=== PATIENT | male | born 1950 | race Caucasian/White ===

== ENCOUNTER 2017-04-16 08:13 | Outpatient (CLI) | payer OTHER ==
[~2017-04-16 08:13] MED LIST: ANTIVERT25 M1 PO; CIPRO500 MG PO; FLAGYL500MG PO; INTESTINEX680 MG PO; SYNTHROID175 MCG
[2017-04-21] MEDS ORDERED: SYNTHROID175 MCG PO (13:08)
[2017-04-21] MEDS ORDERED: LIPITOR40 MG PO (13:08)
[2017-04-21] MEDS ORDERED: FENOFIB PO (13:09)
[2017-04-21] MEDS ORDERED: [UNRECOGNIZED DRUG - OTHER] PO (13:09)
[2017-04-21] MEDS ORDERED: B TREX PO (13:10)
[2017-04-21] MEDS ORDERED: OSTERA TABLET1 EACH PO (13:11)
[2017-04-21] MEDS ORDERED: NEURIN SL (13:11)
[2017-05-02] MEDS ORDERED: LEVAQUIN750 MG PO (08:30)
[2017-05-02] MEDS ORDERED: OXYC1TAB9 PO (08:30)
[2017-05-02] MEDS ORDERED: Intestinex CAP PO (08:30)
== END 2017-04-16 08:29 | disposition home or self-care (01) ==
LOC: RAD 08:13
DX: K57.32 Diverticulitis of large intestine without perforation or abscess without bleeding (principal); R10.32 Left lower quadrant pain; R19.4 Change in bowel habit; Z86.010 Personal history of colon polyps

== ENCOUNTER 2018-02-03 14:17 | Outpatient (CLI) | payer OTHER ==
[~2018-02-03 14:17] MED LIST changes: +B TREX PO; +FENOFIB PO; +Intestinex CAP PO; +LEVAQUIN750 MG PO; +LIPITOR40 MG PO; +NEURIN SL; +OSTERA TABLET1 EACH PO; +OXYC1TAB9 PO; +SYNTHROID175 MCG PO; +[UNRECOGNIZED DRUG - OTHER] PO
== END 2018-02-03 14:20 | disposition home or self-care (01) ==
LOC: RAD 14:17
DX: M16.11 Unilateral primary osteoarthritis, right hip (principal); M17.11 Unilateral primary osteoarthritis, right knee

== ENCOUNTER 2018-03-02 10:01 | Outpatient (CLI) | payer OTHER | END 2018-03-02 12:19 | disposition home or self-care (01) | LOC: MRI 10:01 | DX: M17.11 Unilateral primary osteoarthritis, right knee (principal) | CPT/HCPCS: 73721 ==

== ENCOUNTER 2018-05-13 15:29 | Outpatient (CLI) | payer OTHER | END 2018-05-13 17:00 | disposition home or self-care (01) | LOC: RAD 501 15:29 | DX: R07.89 Other chest pain (principal) ==

== ENCOUNTER 2019-02-05 13:59 | Outpatient (CLI) | payer OTHER | END 2019-02-05 14:02 | disposition home or self-care (01) | LOC: RAD 13:59 | DX: R10.84 Generalized abdominal pain (principal) ==

== ENCOUNTER 2019-03-04 07:00 | Day surgery (SDC) | payer OTHER ==
[~2019-03-04] VITALS: Ht 172.7 cm; Wt 69.4 kg
[~2019-03-04 07:00] MED LIST changes: +FENOFIBRATE160 MG PO; +NEURONTIN600 MG PO; +UROXATRAL10 MG PO
[2019-03-04] MEDS ORDERED: MIRALAX17 GM PO (13:56)
[2019-03-04] MEDS ORDERED: TYLENOL EXTRA500 MG PO (13:56)
[2019-03-04] MEDS ORDERED: ZOFRAN4 MG PO (13:56)
[2019-03-04] MEDS ORDERED: TRAMADOL HCL50 MG PO (13:56)
[2019-03-04] MEDS ORDERED: NEURONTIN300 MG PO (13:56)
== END 2019-03-04 13:00 | disposition home or self-care (01) ==
LOC: CIR.AMB 07:00 → SURH 07:00 → O/R 07:27 → SURH 07:27 → EDSTATUS 10:30 → SURH 10:30 → CIR.AMB 13:00
DX: K40.30 Unilateral inguinal hernia, with obstruction, without gangrene, not specified as recurrent (principal); K43.0 Incisional hernia with obstruction, without gangrene

== ENCOUNTER → 2019-05-18 | Outpatient (CLI) | payer OTHER ==
[~2019-05-18] MED LIST changes: +MIRALAX17 GM PO; +NEURONTIN300 MG PO; +TRAMADOL HCL50 MG PO; +TYLENOL EXTRA500 MG PO; +ZOFRAN4 MG PO
== END | disposition home or self-care (01) ==
LOC: RAD 15:05
DX: M25.561 Pain in right knee (principal); M25.562 Pain in left knee

== ENCOUNTER 2019-05-19 11:32 | Outpatient (CLI) | payer OTHER | END 2019-05-19 11:38 | disposition home or self-care (01) | LOC: SONOGRAMA 11:32 → MAMO-SONO 13:45 | DX: M25.512 Pain in left shoulder (principal); M25.522 Pain in left elbow ==

== ENCOUNTER 2019-12-23 08:41 | Outpatient (CLI) | payer OTHER | END 2019-12-23 08:46 | disposition home or self-care (01) | LOC: MRI 08:41 | PROVIDERS: ATTEND Internal Medicine Hematology & Oncology | DX: D51.1 Vitamin B12 deficiency anemia due to selective vitamin B12 malabsorption with proteinuria (principal); D53.8 Other specified nutritional anemias; D50.8 Other iron deficiency anemias; N40.1 Benign prostatic hyperplasia with lower urinary tract symptoms; R97.20 Elevated prostate specific antigen [PSA]; N41.8 Other inflammatory diseases of prostate; K31.83 Achlorhydria; B96.81 Helicobacter pylori [H. pylori] as the cause of diseases classified elsewhere; R73.01 Impaired fasting glucose; E03.8 Other specified hypothyroidism; E78.2 Mixed hyperlipidemia; K90.89 Other intestinal malabsorption | CPT/HCPCS: 73218 ==

== ENCOUNTER 2020-08-16 08:38 | Outpatient (CLI) | payer OTHER | END 2020-08-16 08:59 | disposition home or self-care (01) | LOC: RAD 08:38 → MAMO-SONO 09:00 | PROVIDERS: ATTEND Orthopaedic Surgery | DX: M24.541 Contracture, right hand (principal) ==

== ENCOUNTER 2021-04-07 23:09 | Emergency (ER) | payer OTHER ==
[~2021-04-07] VITALS: Ht 172.7 cm; Wt 70.3 kg
== END 2021-04-08 02:40 | disposition home or self-care (01) ==
LOC: ER 23:09
DX: S11.81XA Laceration without foreign body of other specified part of neck, initial encounter (principal); M54.2 Cervicalgia; W45.8XXA Other foreign body or object entering through skin, initial encounter; Y93.89 Activity, other specified; Y92.89 Other specified places as the place of occurrence of the external cause; Y99.8 Other external cause status

== ENCOUNTER 2024-02-22 22:38 | Emergency (ER) | payer OTHER ==
[~2024-02-22] VITALS: Ht 172.7 cm; Wt 68.0 kg
[2024-02-22] MEDS ORDERED: METFORMIN HCL500 M4 PO (23:21)
[2024-02-22] MEDS ORDERED: ROSUVASTATIN CAL5 MG (23:22)
[2024-02-23] MEDS ORDERED: ACETAMINOPHEN 500 MG GEL..CAP PO STA (00:52)
[2024-02-23] MEDS ORDERED: ACETAMINOPHEN 500 MG GEL..CAP PO ONE (01:00)
[2024-02-23 02:06] LABS: HEMOGLOBIN 13.6 g/dL (13-16.00); MEAN CELL VOLUME 89.2 fL (80.0-100.00); MEAN CORPUSCULAR HGB CONC 34.7 g/dl (32.0-36.0); PLATELET COUNT 166 K/uL (150-450); RED BLOOD COUNT 4.38 M/uL (4.00-6.00); RED CELL DISTRIBUTION WIDTH 13.5 % (11.5-14.5)
[2024-02-23] MEDS ORDERED: CEFTRIAXONE SODIUM 1,000 MG VIAL IV STA (02:22)
[2024-02-23] MEDS ORDERED: CEFTRIAXONE SODIUM 1,000 MG VIAL ONE (02:24)
[2024-02-23] MEDS ORDERED: AMOX-CLAV 875-1 EACH PO (02:42)
== END 2024-02-23 03:12 ==
LOC: ER 22:39
PROVIDERS: General Practice
DX: S91.051A Open bite, right ankle, initial encounter (principal); W54.0XXA Bitten by dog, initial encounter; Y93.89 Activity, other specified; Y92.89 Other specified places as the place of occurrence of the external cause; Y99.8 Other external cause status; I10 Essential (primary) hypertension; E03.8 Other specified hypothyroidism; Z88.6 Allergy status to analgesic agent
CPT/HCPCS: 36415; 73600; 96365; 99283; J0696

== ENCOUNTER 2024-02-25 15:17 | Inpatient (IN) | payer OTHER ==
[~2024-02-25] VITALS: Ht 152.4 cm; Wt 68.0 kg
[~2024-02-25 15:17] MED LIST changes: +AMOX-CLAV 875-1 EACH PO; +METFORMIN HCL500 M4 PO; +ROSUVASTATIN CAL5 MG
--- NOTE | 2024-02-25 15:44 | NUR ---
SE RECIBE PACIENTE ALERTA Y ORIENTADO EN [place] RISSA ESFERAS REFIERE VENIR DE PARTE DEL DR. JEET CHARLES PARA ADMISION. INDICA QUE HACE APROXIMADAMENTE 10 DOAS LO MORDIO UN MIMI EN EL TOBILLO DERECHO. MENCIONA QUE ESTUVO TOMANDO CEFADROXIL Y AUGMENTIN. SE OBSERCA HERIDA CON ERITEMA, EDEMA Y SECRECIONES PURULENTAS.
[2024-02-25] MEDS ORDERED: RINGERS SOLUTION,LACTATED 1,000 ML IV STA (16:34)
--- NOTE | 2024-02-25 16:51 | NUR ---
SE ORIENTA PTE SOBRE TX A SEGUIR, EL MISMO REFIERE ENTENDER. SE EMPERATRIZ MUESTRA DE LAB, SE CANALIZA Y SE COLOCA IV FLUIDS
[2024-02-25 17:46] LABS: HEMATOCRIT 41.8 % (39.0-48.0); HEMOGLOBIN 14.2 g/dL (13-16.00); MEAN CELL VOLUME 89.1 fL (80.0-100.00); MEAN CORPUSCULAR HEMOGLOBIN 30.3 pg (27.00-32.0); PLATELET COUNT 199 K/uL (150-450); RED BLOOD COUNT 4.69 M/uL (4.00-6.00); RED CELL DISTRIBUTION WIDTH 13.8 % (11.5-14.5)
[2024-02-25 17:56] LABS: PARTIAL THROMBOPLASTIN TIME 26.6 SECONDS (22.0-34.0); PROTHROMBIN TIME 10.9 SECONDS (9.0-11.5)
[2024-02-25 18:00] LABS: ALBUMIN 3.6 gm/dL (3.4-5.0); BILIRUBIN TOTAL 0.21 mg/dL (0.3-1.2); CALCIUM 10.4 mg/dL (8.5-10.1); CREATININE SERUM 0.91 mg/dL (0.70-1.30); GFR 81.44; GLOBULINA 5.2 G/DL (2.4-3.5); POTASSIUM 4.18 mEq/L (3.5-5.1); TOTAL PROTEIN 8.8 gm/dL (6.4-8.2)
[2024-02-25] MEDS ORDERED: 0.9 % SODIUM CHLORIDE 1,000 ML IV SCH (18:45)
[2024-02-25] MEDS ORDERED: PIPERACILLIN/TAZOBACTAM SODIUM 3.375 GM in DEXTROSE 5 % IN WATER 100 ML IV SCH (19:01)
[2024-02-25] MEDS ORDERED: ENALAPRILAT DIHYDRATE 1.25 MG/ML VIAL IV PRN (19:15)
[2024-02-25 19:39] LABS: ERYTHROCYTE SEDIMENTATION RATE 68 mm/hr
[2024-02-25] MEDS ORDERED: PIPERACILLIN/TAZOBACTAM SODIUM 3.375 GM VIAL IV ONE (20:01)
[2024-02-25] MEDS ORDERED: ALFUZOSIN 10 MG PO SCH (21:00)
[2024-02-25] MEDS ORDERED: FAMOTIDINE/PF 20 MG/2 ML VIAL IV SCH (21:00)
[2024-02-25] MEDS ORDERED: VANCOMYCIN HCL 1,000 MG VIAL IV SCH (21:00)
[2024-02-26 02:50] VITALS: BP 133/68
[2024-02-26] MEDS ORDERED: LEVOTHYROXINE SODIUM 125 MCG TABLET PO SCH (06:00)
[2024-02-26 06:58] LABS: ALBUMIN 3.2 gm/dL (3.4-5.0); BILIRUBIN TOTAL 0.32 mg/dL (0.3-1.2); CALCIUM 9.2 mg/dL (8.5-10.1); CREATININE SERUM 0.96 mg/dL (0.70-1.30); GFR 76.57; GLOBULINA 3.8 G/DL (2.4-3.5); HEMATOCRIT 35.8 % (39.0-48.0); HEMOGLOBIN 12.7 g/dL (13-16.00); MEAN CELL VOLUME 86.6 fL (80.0-100.00); MEAN CORPUSCULAR HEMOGLOBIN 30.8 pg (27.00-32.0); MEAN CORPUSCULAR HGB CONC 35.5 g/dl (32.0-36.0); PLATELET COUNT 175 K/uL (150-450); POTASSIUM 5.06 mEq/L (3.5-5.1); RED BLOOD COUNT 4.13 M/uL (4.00-6.00); RED CELL DISTRIBUTION WIDTH 13.8 % (11.5-14.5); TSH 2.12 uIU/mL (0.358-3.74)
[2024-02-26 07:01] LABS: C-REACTIVE PROTEIN 1.55 MG/DL (0.00-0.29)
[2024-02-26] MEDS ORDERED: METOPROLOL SUCCINATE 25 MG TAB.SR.24H PO SCH (09:00)
[2024-02-26 09:14] VITALS: BP 124/73
[2024-02-26] MEDS ORDERED: TRAMADOL HCL 50 MG TABLET PO PRN (10:45)
[2024-02-26 17:38] VITALS: BP 146/70
[2024-02-26] MEDS ORDERED: PATIENTS OWN MEDICATION (MEDICAMENTO EN PISO) PO SCH (21:00)
[2024-02-26] MEDS ORDERED: ORPHENADRINE CITRATE 100 MG TABLET PO SCH (21:00)
[2024-02-26] MEDS ORDERED: DEXTROSE 5%-WATER 100ML IV.SOLN ONE (23:52)
[2024-02-27 02:06] VITALS: BP 132/69
[2024-02-27] MEDS ORDERED: DEXTROSE 5%-WATER 100ML IV.SOLN ONE ×2 (04:05→11:32)
[2024-02-27 08:00] VITALS: BP 125/66
[2024-02-27] MEDS ORDERED: ENOXAPARIN SODIUM 40 MG/0.4 ML SYRINGE SUBCUTANEO SCH (09:00)
[2024-02-27 17:53] VITALS: BP 126/71
[2024-02-27] MEDS ORDERED: VANCOMYCIN HCL 5 MG/ML REDILUIDO IV SCH (21:00)
[2024-02-27 22:46] VITALS: BP 135/79
[2024-02-28 01:43] VITALS: BP 120/77
[2024-02-28 01:45] VITALS: BP 130/75
[2024-02-28 08:40] VITALS: BP 116/62
[2024-02-28 17:01] VITALS: BP 128/76
[2024-02-29 00:53] VITALS: BP 155/79
[2024-02-29 09:32] VITALS: BP 134/81
[2024-02-29] MEDS ORDERED: Cyanocobalamin/Mecobalamin 1 TAB.SL SL SCH (15:44)
[2024-02-29 17:00] VITALS: BP 148/73
[2024-03-01 02:04] VITALS: BP 125/73
[2024-03-01 06:08] LABS: HEMATOCRIT 38.1 % (39.0-48.0); MEAN CORPUSCULAR HEMOGLOBIN 30.4 pg (27.00-32.0); MEAN CORPUSCULAR HGB CONC 34.2 g/dl (32.0-36.0); PLATELET COUNT 197 K/uL (150-450); RED BLOOD COUNT 4.28 M/uL (4.00-6.00); RED CELL DISTRIBUTION WIDTH 13.7 % (11.5-14.5)
[2024-03-01 06:33] LABS: ERYTHROCYTE SEDIMENTATION RATE 51 mm/hr
[2024-03-01 06:47] LABS: ALBUMIN 3.2 gm/dL (3.4-5.0); BILIRUBIN TOTAL 0.62 mg/dL (0.3-1.2); CREATININE SERUM 1.02 mg/dL (0.70-1.30); GFR 71.39; GLOBULINA 3.9 G/DL (2.4-3.5); MAGNESIUM 1.9 mg/dL (1.8-2.4); PHOSPHOROUS 3.7 mg/dL (2.5-4.9); POTASSIUM 4.29 mEq/L (3.5-5.1); TOTAL PROTEIN 7.1 gm/dL (6.4-8.2)
[2024-03-01 06:49] LABS: C-REACTIVE PROTEIN 0.82 MG/DL (0.00-0.29)
[2024-03-01 08:21] VITALS: BP 118/80; O2SAT 94
[2024-03-01 21:01] VITALS: BP 124/64
[2024-03-01] MEDS ORDERED: DEXTROSE 5%-WATER 100ML IV.SOLN ONE (23:28)
[2024-03-02 02:15] VITALS: BP 143/76
[2024-03-02 08:24] VITALS: BP 135/81; O2SAT 95
[2024-03-02] MEDS ORDERED: DEXTROSE 5%-WATER 100ML IV.SOLN ONE ×3 (08:31→08:38)
[2024-03-02 16:34] VITALS: BP 122/61; O2SAT 100
[2024-03-02] MEDS ORDERED: PATIENTS OWN MEDICATION (MEDICAMENTO EN PISO) PO SCH ×3 (17:00)
[2024-03-03 00:10] VITALS: BP 121/82; O2SAT 92
[2024-03-03] MEDS ORDERED: PATIENTS OWN MEDICATION (MEDICAMENTO EN PISO) PO SCH (09:00)
[2024-03-03 09:04] VITALS: BP 121/81; O2SAT 95
[2024-03-03 16:00] VITALS: BP 115/68; O2SAT 96
[2024-03-04 01:52] VITALS: BP 134/77; O2SAT 91
[2024-03-04 06:01] LABS: HEMATOCRIT 39.5 % (39.0-48.0); HEMOGLOBIN 13.6 g/dL (13-16.00); MEAN CORPUSCULAR HEMOGLOBIN 30.3 pg (27.00-32.0); MEAN CORPUSCULAR HGB CONC 34.4 g/dl (32.0-36.0); PLATELET COUNT 192 K/uL (150-450); RED BLOOD COUNT 4.49 M/uL (4.00-6.00); RED CELL DISTRIBUTION WIDTH 13.8 % (11.5-14.5)
[2024-03-04 06:45] LABS: CALCIUM 9.1 mg/dL (8.5-10.1); CREATININE SERUM 0.93 mg/dL (0.70-1.30); GFR 79.42; POTASSIUM 4.34 mEq/L (3.5-5.1)
[2024-03-04 09:20] VITALS: BP 135/80; O2SAT 96
[2024-03-04 19:02] VITALS: BP 143/85; O2SAT 96
[2024-03-04 22:50] VITALS: BP 126/76; O2SAT 97
[2024-03-04] MEDS ORDERED: DEXTROSE 5%-WATER 100ML IV.SOLN ONE (23:56)
[2024-03-05 02:16] VITALS: BP 132/77; O2SAT 92
[2024-03-05 08:47] VITALS: BP 119/80; O2SAT 93
[2024-03-05 17:32] VITALS: BP 124/76; O2SAT 98
[2024-03-05 22:41] VITALS: BP 111/60; O2SAT 98
[2024-03-06 01:47] VITALS: BP 106/66; O2SAT 92
[2024-03-06 09:47] VITALS: BP 117/73
[2024-03-06 17:36] VITALS: BP 112/70; O2SAT 97
[2024-03-06 22:03] VITALS: BP 130/81; O2SAT 98
[2024-03-07 01:04] VITALS: BP 130/83; O2SAT 98
[2024-03-07 09:16] VITALS: BP 126/80; O2SAT 94
[2024-03-07 17:18] VITALS: BP 137/85; O2SAT 97
[2024-03-07 21:51] VITALS: BP 150/79; O2SAT 98
[2024-03-08 01:07] VITALS: BP 138/81; O2SAT 100
[2024-03-08 09:03] VITALS: BP 140/74; O2SAT 99
[2024-03-08 17:51] VITALS: BP 155/83
[2024-03-09 01:43] VITALS: BP 117/71; O2SAT 100
[2024-03-09 06:32] LABS: HEMATOCRIT 37.7 % (39.0-48.0); HEMOGLOBIN 12.9 g/dL (13-16.00); MEAN CELL VOLUME 88.8 fL (80.0-100.00); MEAN CORPUSCULAR HEMOGLOBIN 30.3 pg (27.00-32.0); MEAN CORPUSCULAR HGB CONC 34.2 g/dl (32.0-36.0); PLATELET COUNT 189 K/uL (150-450); RED BLOOD COUNT 4.25 M/uL (4.00-6.00); RED CELL DISTRIBUTION WIDTH 14.1 % (11.5-14.5)
[2024-03-09 06:51] LABS: ERYTHROCYTE SEDIMENTATION RATE 52 mm/hr
[2024-03-09 07:17] LABS: CALCIUM 9.3 mg/dL (8.5-10.1); CREATININE SERUM 0.92 mg/dL (0.70-1.30); GFR 80.42; MAGNESIUM 1.9 mg/dL (1.8-2.4); PHOSPHOROUS 3.5 mg/dL (2.5-4.9); POTASSIUM 5.01 mEq/L (3.5-5.1)
[2024-03-09 07:24] LABS: C-REACTIVE PROTEIN 0.52 MG/DL (0.00-0.29)
[2024-03-09 07:40] VITALS: BP 133/79; O2SAT 92
[2024-03-09] MEDS ORDERED: CEFTRIAXONE SODIUM 2,000 MG VIAL IV SCH (17:00)
[2024-03-09 17:16] VITALS: BP 128/72
[2024-03-09 21:58] VITALS: BP 111/60
[2024-03-10 02:24] VITALS: BP 117/67
[2024-03-10 08:20] VITALS: BP 118/70; O2SAT 94
[2024-03-10 18:09] VITALS: BP 143/78
[2024-03-10 22:01] VITALS: BP 110/74
[2024-03-11 01:40] VITALS: BP 119/77; O2SAT 97
[2024-03-11 09:20] VITALS: BP 147/90; O2SAT 95
[2024-03-11] MEDS ORDERED: LEVOTHYROXINE125 MCG PO (14:55)
[2024-03-11] MEDS ORDERED: FENOFIBRATE160 MG PO (14:55)
[2024-03-11] MEDS ORDERED: ABANEU-SL TABL1 EACH SL (14:55)
[2024-03-11] MEDS ORDERED: POM (MEDICAMENTO EN PO ×3 (14:55)
[2024-03-11 16:40] VITALS: BP 131/69
== END 2024-03-11 18:38 | disposition home or self-care (01) | DRG 580 ==
LOC: ER 15:18 → MEDI 19:18
PROVIDERS: ADMIT Internal Medicine Geriatric Medicine; ATTEND Internal Medicine Geriatric Medicine
PROC: BQ3DZZZ Magnetic Resonance Imaging (MRI) of Right Lower Leg (ICD-10-PCS; 2024-02-26)
PROC: 02HV33Z Insertion of Infusion Device into Superior Vena Cava, Percutaneous Approach (ICD-10-PCS; 2024-02-28)
PROC: BQ3FZZZ Magnetic Resonance Imaging (MRI) of Left Lower Leg (ICD-10-PCS; 2024-03-04)
PROC: 0JDQ0ZZ Extraction of Right Foot Subcutaneous Tissue and Fascia, Open Approach (ICD-10-PCS; principal; 2024-03-10)
DX: L03.115 Cellulitis of right lower limb (principal); M86.8X6 Other osteomyelitis, lower leg; S90.01XA Contusion of right ankle, initial encounter; W54.0XXA Bitten by dog, initial encounter; Y93.9 Activity, unspecified; Y92.9 Unspecified place or not applicable; B96.89 Other specified bacterial agents as the cause of diseases classified elsewhere; I10 Essential (primary) hypertension; E03.9 Hypothyroidism, unspecified; E78.5 Hyperlipidemia, unspecified; N40.0 Benign prostatic hyperplasia without lower urinary tract symptoms
CPT/HCPCS: 73722

== ENCOUNTER → 2024-10-07 | Emergency (ER) | payer OTHER ==
[~2024-10-07] VITALS: Ht 172.7 cm; Wt 67.1 kg
[~2024-10-07] MED LIST changes: +ABANEU-SL TABL1 EACH SL; +LEVOTHYROXINE125 MCG PO; +POM (MEDICAMENTO EN PO
[2024-10-08 00:29] VITALS: BP 133/81; O2SAT 95
== END | disposition left against medical advice (07) ==
LOC: ER 23:28
DX: Z53.21 Procedure and treatment not carried out due to patient leaving prior to being seen by health care provider (principal)

== ENCOUNTER 2024-11-03 07:47 | Outpatient (CLI) | payer OTHER | END 2024-11-03 07:52 | disposition home or self-care (01) | LOC: SONOGRAMA 07:47 | PROVIDERS: ATTEND Orthopaedic Surgery | DX: M25.512 Pain in left shoulder (principal); M75.122 Complete rotator cuff tear or rupture of left shoulder, not specified as traumatic ==